=== PATIENT | male | born 1940 ===

== ENCOUNTER → 2020-06-08 | Outpatient (REF) | LOC: COL.CARD 09:31 | DX: Z01.810 Encounter for preprocedural cardiovascular examination (principal) ==

== ENCOUNTER 2024-02-13 06:19 | Day surgery (SDC) | payer MEDICARE ==
[~2024-02-13] VITALS: Ht 182.9 cm; Wt 78.5 kg
[2024-02-13] VITALS (13 sets, daily range): BP systolic 130–160; BP diastolic 55–75; PULSE 52–73; TEMP 97.7–100.4
[~2024-02-13 06:19] MED LIST: LR 1,000 ML IV SCH
--- NOTE | 2024-02-13 07:05 | NUR ---
PATIENT ADMITTED TO ROOM 1 AMBULATORY AND IS ALERT AND ORIENTED. PATIENT ACCOMPANIED BY SPOUSE. CONSENT SIGNED. HEARING AIDS PLACED IN OWN CASE AND GLASSES IN CASE.
[2024-02-13] MEDS ORDERED: fentaNYL 50 MCG/ML 5 ML VIAL ONE (07:32)
[2024-02-13] MEDS ORDERED: Lidocaine PF 2% (20 MG/ML) 5 ML VIAL ONE (07:33)
[2024-02-13] MEDS ORDERED: Rocuronium 50 MG/5 ML Multi-Dose VIAL ONE (07:33)
[2024-02-13] MEDS ORDERED: COZAAR100 MG PO (07:50)
[2024-02-13] MEDS ORDERED: PLAVIX 75MG TAB75 MG PO (07:51)
[2024-02-13] MEDS ORDERED: LIPITOR 40MG TA40 MG PO (07:52)
[2024-02-13] MEDS ORDERED: ASPIRIN E.C. 8181 MG PO (07:52)
[2024-02-13] MEDS ORDERED: BETIMOL 0.5% OPH5 ML OD (07:53)
[2024-02-13] MEDS ORDERED: XALATAN EYE DROPS OD (07:54)
[2024-02-13] MEDS ORDERED: ALPHAGAN OPHTH D5 ML OD (07:55)
[2024-02-13] MEDS ORDERED: Ondansetron 4 MG/2 ML VIAL ONE (09:12)
[2024-02-13] MEDS ORDERED: dexAMETHasone 10 MG/ML VIAL ONE (09:12)
[2024-02-13] MEDS ORDERED: Topical Skin Adhesive 1 EACH (1 ML) TOP ONE (09:17)
[2024-02-13] MEDS ORDERED: hydrALAZINE 20 MG/ML 1 ML VIAL ONE (09:38)
[2024-02-13] MEDS ORDERED: Meperidine 50 MG/ML 1 ML VIAL IV PRN (09:45)
[2024-02-13] MEDS ORDERED: Morphine 2 MG/1 ML VIAL [PACU/SDC ONLY] IV PRN (09:45)
[2024-02-13] MEDS ORDERED: Ondansetron 4 MG/2 ML VIAL IV PRN (09:45)
[2024-02-13] MEDS ORDERED: HYDROmorphone 1 MG/1 ML SYRINGE [PACU/SDC ONLY] IV PRN (09:45)
[2024-02-13] MEDS ORDERED: fentaNYL 50 MCG/ML 1 ML SYRINGE/VIAL [PACU/SDC ONLY] IV PRN (09:45)
[2024-02-13] MEDS ORDERED: droPERidol 2.5 MG/ML 2 ML VIAL IV PRN (09:45)
[2024-02-13] MEDS ORDERED: ePHEDrine 50 MG/ML VIAL ONE (09:52)
[2024-02-13] MEDS ORDERED: LR 1,000 ML IV ONE (10:06)
[2024-02-13] MEDS ORDERED: Glycopyrrolate 0.2 MG/ML 1 ML VIAL ONE (10:25)
[2024-02-13] MEDS ORDERED: Neostigmine 1 MG/ML 10 ML Multi-Dose Vial ONE (10:25)
[2024-02-13] MEDS ORDERED: Ondansetron 4 MG/2 ML VIAL IV SCH (11:00)
[2024-02-13] MEDS ORDERED: Acetaminophen 325 MG TAB PO PRN (11:00)
--- NOTE | 2024-02-13 11:40 | NUR ---
pt admitted to room from pacu, at bedside. vss. x6 lap sites are cdi. pt tolerating ice chips. med rec and admission assessment complete. oriented pt to room. call light in reach. no needs at this time.
--- NOTE | 2024-02-13 20:44 | NUR ---
PT HAS TEMP 100.6, MEDICATED WITH TYLENOL 650MG PO. PT HAS CREPITUS AT THROAT AND NECK AREA, PT FEELS HE HAS DIFFICULTY WITH SWALLOWING. CRUSHED MED FOR PT. AMBULATED WITH SBA IN HALLWAY X3 AROUND SURGICAL SIDE. HAS INT TO LT WRIST. HAS STEADY GAIT WITHOUT ASSISTIVE DEVICES. ROBOTIC SITES X6 TO ABD, MIDDLE ABD WITH LEAKAGE, REPLACED DRSG WITH BANDAID. DENIES SOA.
[2024-02-13] MEDS ORDERED: Timolol 0.5% Ophth Soln 5 ML BOTTLE OP SCH (21:00)
[2024-02-13] MEDS ORDERED: Latanoprost 0.005% Ophth Soln 2.5 ML BOTTLE OP SCH (21:00)
--- NOTE | 2024-02-13 23:06 | NUR ---
NOTIFIED DR ROQUE OF PT'S CREPITUS AT BASE OF NECK AND THROAT AREA. NEW ORDER TO CHANGE PAIN MEDS TO LIQUID.
[2024-02-13] MEDS ORDERED: HYDROcodone/Acetaminophen 7.5 MG-325 MG/15 ML Oral Soln PO PRN (23:15)
[2024-02-13] MEDS ORDERED: Acetaminophen Oral Susp 325 MG/10.15 ML UD PO PRN (23:15)
--- NOTE | 2024-02-13 23:25 | NUR ---
PT SITTING IN CHAIR AT BEDSIDE, HAS WALKED AGAIN IN HALLWAY WITH STEADY GAIT. IV ZOFRAN GIVEN PER SCHEDULE. APPLIED WARM PACK TO NECK.
[2024-02-14] VITALS (7 sets, daily range): BP systolic 135–155; BP diastolic 70–75; PULSE 61–72; TEMP 97.3–98.1
--- NOTE | 2024-02-14 00:13 | NUR ---
PT SITTING IN CHAIR AT BEDSIDE, REPORTS HAVING A "HICCUP" SORT OF EPISODE AND WAS WORRIED HE WOULDN'T CATCH HIS BREATH. WARM PACK DIDN'T HELP. PT AFRAID TO TRY ANY ORAL MEDS AT THIS TIME, DOESN'T WANT TO TRY ICE CHIPS OR WARM LIQUIDS AT THIS TIME. VSS, OXYGEN 96% ON R/A. PLACED ON OXYGEN AT 2L/NC FOR COMFORT.
--- NOTE | 2024-02-14 01:40 | NUR ---
PT WALKING IN HALLWAY WITH STEADY GAIT, IN NO APPARENT DISTRESS.
--- NOTE | 2024-02-14 04:27 | NUR ---
PT RESTING IN THE BED WITH EYES CLOSED.
--- NOTE | 2024-02-14 05:20 | NUR ---
PT SITTING IN CHAIR AT BEDSIDE. ZOFRAN GIVEN IV. PT HAS FELT INTERMITTENT NAUSEA THIS SHIFT, IS STILL CAUTIOUS ABOUT TAKING ANY ORAL MEDS.
[2024-02-14] MEDS ORDERED: Brimonidine 0.2% Ophth Soln 5 ML BOTTLE OP SCH (09:00)
[2024-02-14] MEDS ORDERED: Atorvastatin 40 MG TAB PO SCH (09:00)
[2024-02-14] MEDS ORDERED: Losartan 50 MG TAB PO SCH (09:00)
--- NOTE | 2024-02-14 09:23 | NUR ---
Pt is sitting up in bedside chair. A&Ox4. VSS. S1S2. Lung sounds are clear in upper lobes and diminished in bases. ABD is rounded, soft, non-tender with audible bowel sounds. Palpable pulses with normal strength in all extremities. Crepitus in upper chest and up along neck. Pt has concerns about swollowing morning meds due to soreness in throat (skin and muscle per Pt). Pt swallowed warm water without issues. Had no issues with small pills this AM. ABD lap sites x6 - open to air, skin glue. Bandaid on 1 - CDI. Pt has patent IV in L wrist - INT. Pt is independent. No further needs at this time. Call light in reach.
[2024-02-14] MEDS ORDERED: NORCO 325 MG-51 TAB PO (11:02)
--- NOTE | 2024-02-14 11:15 | NUR ---
Initial visit; Patient thanked [employer] for looking in on him and visiting. Patient was receptive to sharing a prayer with [employer] for continued healing and thanksgiving for his DrVee's, Nurses and all who have cared for him while he has been here at [facility].
--- NOTE | 2024-02-14 11:45 | NUR ---
INT discontinued. discharge instructions given to pt, all questions answered. pt waiting for ride to discharge.
--- NOTE | 2024-02-14 13:43 | NUR ---
driver/sales workers met with patient to discuss discharge planning. Patient lives in [place] with his , Jossy Romero# [phone]. PCP is Dr. Campos, pharmacy is [place] [facility]. No issues affording medications. Medicare [employer] is insurance. No DPOA-HC on file and patient was not interested in completing one. No DME and patient reports to be independent with ADLS. Patient's will be transporting patient to and from appointments. Patient would like to return home at time of discharge. Discharge plan: Home
--- NOTE | 2024-02-14 13:52 | NUR ---
Pt walked out to car with BUCK Doyle.
== END 2024-02-14 13:45 | disposition home or self-care (01) ==
LOC: SDCO 06:19 → SURG 11:40 → SDCO 02-14 13:45
DX: K21.9 Gastro-esophageal reflux disease without esophagitis (principal); K44.9 Diaphragmatic hernia without obstruction or gangrene; Z95.5 Presence of coronary angioplasty implant and graft
CPT/HCPCS: OP; J0360; J0665; J0690; J1100; J2405; J2704; J2710; J3010; J7120